=== PATIENT | female | born 1975 | race Hispanic/Latino ===

== ENCOUNTER 2020-11-30 13:13 | Emergency (ER) | payer BC ==
[~2020-11-30] VITALS: Ht 157.5 cm; Wt 93.9 kg
[2020-11-30 13:15] VITALS: BP 127/87
[2020-11-30 15:02] LABS: BASOPHILS % (AUTO) 0.6 % (0.0-5.0); EOSINOPHILS % (AUTO) 2.1 % (0.0-8.0); LYMPHOCYTES % (AUTO) 33.7 % (21.0-51.0); MEAN CORPUSCULAR HEMOGLOBIN 28.8 pg (27.0-33.0); MEAN CORPUSCULAR HGB CONC 33.3 g/dL (32.0-36.0); MEAN CORPUSCULAR VOLUME 86.7 fL (79-99); MONOCYTES % (AUTO) 9.1 % (3.0-13.0); NEUTROPHILS % (AUTO) 54.2 % (40.0-77.0); PLATELET COUNT (AUTO) 362 K/uL (130-400); RED BLOOD CELL COUNT(AUTO) 4.96 MIL/uL (4.00-5.50); RED CELL DISTRIBUTION WIDTH 13.2 % (11.0-15.5); WHITE BLOOD COUNT (AUTO) 7.8 K/uL (4.8-10.8)
[2020-11-30] MEDS ORDERED: MAG HYDROX/AL HYDROX/SIMETH ES 30 ML SUSP UDCUP PO ONE (15:15)
[2020-11-30] MEDS ORDERED: SODIUM CHLORIDE 0.9% 1000ML 1,000 ML IV ONE (15:15)
[2020-11-30] MEDS ORDERED: LIDOCAINE HCL 2% VISCOUS 15 ML UDCUP PO ONE (15:15)
[2020-11-30] MEDS ORDERED: ONDANSETRON HCL 4 MG/2 ML VIAL IVP ONE (15:15)
[2020-11-30 15:16] LABS: CREATININE 0.7 mg/dL (0.5-1.5); POTASSIUM 4.1 mmol/L (3.5-5.1)
[2020-11-30 15:20] LABS: ALBUMIN 3.6 g/dL (3.5-5.0); BILIRUBIN,TOTAL 0.2 mg/dL (0.2-1.0); TOTAL PROTEIN, SERUM 8.9 g/dL (6.0-8.3)
[2020-11-30 15:33] LABS: INR 1.02 (0.85-1.15); PROTHROMBIN TIME 11.1 SEC (9.6-11.6)
[2020-11-30 15:45] LABS: APPEARANCE,URINE Clear (CLEAR); BILIRUBIN,URINE Negative (NEGATIVE); COLOR,URINE Yellow (YELLOW); GLUCOSE, URINE (UA) >=1000 mg/dL (NEGATIVE); KETONES,URINE 15 mg/dL (NEGATIVE); LEUKOCYTE ESTERASE ,URINE Negative (NEGATIVE); NITRATE,URINE Negative (NEGATIVE); OCCULT BLOOD,URINE Trace (NEGATIVE); PH,URINE 5.5 (5.0-8.0); PROTEIN,URINE Negative (NEGATIVE); UROBILINOGEN,URINE 0.2 mg/dL (0.2-1.0)
[2020-11-30] MEDS ORDERED: CEFTRIAXONE SODIUM 1 GM IVP ONE (15:45)
[2020-11-30 15:49] LABS: CHOLESTEROL 209 mg/dL (<200); CREATINE KINASE, TOTAL 46 U/L (21-232); HDL CHOLESTEROL 35 mg/dL (35-85); LDL DIRECT 93 mg/dL (0-99); MYOGLOBIN 21 ng/mL (10-92); TRIGLYCERIDES 469 mg/dL (30-200); TROPONIN I < 0.04 ng/mL (0.00-0.06)
[2020-11-30 15:54] LABS: AMPHET/METH SCREEN,URINE NEGATIVE (NEGATIVE); BARBITURATE SCREEN, URINE NEGATIVE (NEGATIVE); BENZODIAZEPINES SCREEN,URINE NEGATIVE (NEGATIVE); CANNABINOID SCREEN,URINE NEGATIVE (NEGATIVE); COCAINE SCREEN,URINE NEGATIVE (NEGATIVE); OPIATE SCREEN,URINE NEGATIVE (NEGATIVE); PHENCYCLIDINE SCREEN,URINE NEGATIVE (NEGATIVE)
[2020-11-30 15:59] LABS: HCG,QUAL RESULT NEGATIVE (NEGATIVE)
[2020-11-30] MEDS ORDERED: ONDANSETRON HCL 4 MG/2 ML VIAL ONE (16:36)
[2020-11-30] MEDS ORDERED: LIDOCAINE HCL 2% VISCOUS 15 ML UDCUP ONE (16:36)
[2020-11-30] MEDS ORDERED: MAG HYDROX/AL HYDROX/SIMETH ES 30 ML SUSP UDCUP ONE (16:36)
[2020-11-30] MEDS ORDERED: SODIUM CHLORIDE 0.9% 100 ML IV ONE (16:37)
[2020-11-30 16:43] LABS: BACTERIA,URINE Rare /HPF (None Seen); RBC,URINE 0-1 /HPF (0-1); SQUAMOUS EPITHELIAL CELL,UR 0-2 /HPF (0-2); WBC,URINE 0-1 /HPF (0-1)
[2020-11-30] MEDS ORDERED: IOHEXOL-350 75 ML VIAL IV ONE (17:23)
[2020-11-30 17:50] VITALS: BP 128/69
[2020-11-30] MEDS ORDERED: ACET650O3 PO (18:43)
[2020-11-30] MEDS ORDERED: METR-172 PO (18:43)
[2020-11-30] MEDS ORDERED: CIPR-278 PO (18:43)
[2020-11-30] MEDS ORDERED: DICY20TA2 PO (18:43)
[2020-11-30] MEDS ORDERED: ONDA4TAB4 PO (18:43)
== END 2020-11-30 19:17 | disposition home or self-care (01) ==
LOC: EDH 13:13
DX: K52.9 Noninfective gastroenteritis and colitis, unspecified (principal); Z20.822 Contact with and (suspected) exposure to COVID-19; E11.9 Type 2 diabetes mellitus without complications; E78.5 Hyperlipidemia, unspecified; E66.9 Obesity, unspecified; I10 Essential (primary) hypertension; Z79.4 Long term (current) use of insulin; Z79.899 Other long term (current) drug therapy
CPT/HCPCS: 36415; 71045; 74177; 76705; 76830; 80053; 80061; 80305; 81001; 81025; 82550; 83605; 83690; 83874; 83880; 84484; 85025; 85610; 87040 ×2; 87426; 87804 ×2; 87880; 93005; 96374; 96375; 99285; J0696; J2405; Q9967

== ENCOUNTER 2022-09-11 03:39 | Emergency (ER) | payer BC ==
[~2022-09-11] VITALS: Ht 152.4 cm; Wt 104.4 kg
[~2022-09-11 03:39] MED LIST: ACET650O3 PO; CIPR-278 PO; DICY20TA2 PO; METR-172 PO; ONDA4TAB4 PO
[2022-09-11 03:43] VITALS: BP 143/95
[2022-09-11] MEDS ORDERED: CARI350T PO (04:12)
[2022-09-11] MEDS ORDERED: NAPR-1180 PO (04:12)
[2022-09-11] MEDS ORDERED: KETOROLAC 60 MG VIAL (30MG/ML) IM ONE (04:30)
[2022-09-11] MEDS ORDERED: ORPHENADRINE CITRATE 30 MG/ML ML IM ONE (04:30)
== END 2022-09-11 04:28 | disposition home or self-care (01) ==
LOC: EDH 03:39
DX: M54.6 Pain in thoracic spine (principal); M25.511 Pain in right shoulder; E11.9 Type 2 diabetes mellitus without complications; E78.00 Pure hypercholesterolemia, unspecified; Z79.899 Other long term (current) drug therapy
CPT/HCPCS: 99284; 96372 ×2; J1885; J2360

== ENCOUNTER 2024-03-26 22:37 | Emergency (ER) | payer BC ==
[~2024-03-26] VITALS: Ht 154.9 cm; Wt 100.2 kg
[~2024-03-26 22:37] MED LIST changes: +CARI350T PO; +NAPR-1180 PO
[2024-03-26 23:08] LABS: APPEARANCE,URINE CLEAR (CLEAR); BILIRUBIN,URINE NEGATIVE (NEGATIVE); COLOR,URINE LIGHT-YELLOW (YELLOW); GLUCOSE, URINE (UA) NEGATIVE (NEGATIVE); KETONES,URINE NEGATIVE (NEGATIVE); LEUKOCYTE ESTERASE ,URINE NEGATIVE Leu/uL (NEGATIVE); NITRATE,URINE NEGATIVE (NEGATIVE); OCCULT BLOOD,URINE NEGATIVE (NEGATIVE); PH,URINE 5.5 (5.0-8.0); PROTEIN,URINE NEGATIVE (NEGATIVE); UROBILINOGEN,URINE 0.2 mg/dL (0.2-1.0)
[2024-03-26 23:09] LABS: HCG,QUALITATIVE URINE NEGATIVE (NEGATIVE)
[2024-03-26 23:10] LABS: RBC,URINE 0-1 /HPF (0-1); SQUAMOUS EPITHELIAL CELL,UR RARE /HPF (0-2); WBC,URINE 0-1 /HPF (0-1)
[2024-03-27] MEDS ORDERED: NAPR-1505 PO (01:15)
[2024-03-27] MEDS ORDERED: METH-662 PO (01:15)
[2024-03-27] MEDS: ORPHENADRINE 60MG/2ML IM ONE (01:35)
[2024-03-27] MEDS: TRIAMCINOLONE ACETONIDE 40 MG/ML 1ML VIAL IM ONE (01:36)
[2024-03-27] MEDS: ketOROlac 30MG VIAL (30MG/ML) IM ONE (01:36)
[2024-03-27 01:58] VITALS: BP 130/80; PULSE 90; RESP 18; TEMP 98.1; O2SAT 97
== END 2024-03-27 02:01 | disposition home or self-care (01) ==
LOC: EDH 22:37
DX: E11.9 Type 2 diabetes mellitus without complications (principal); E78.00 Pure hypercholesterolemia, unspecified; Z79.899 Other long term (current) drug therapy; M54.6 Pain in thoracic spine
CPT/HCPCS: 99284; 81001; 81025; 72072; 96372 ×3; J3301; J1885; J2360